=== PATIENT | male | born 1950 | race African-American/Black ===

== ENCOUNTER 2021-07-09 19:35 | Emergency (ER) | payer OTHER ==
[~2021-07-09] VITALS: Ht 180.3 cm; Wt 120.2 kg
[2021-07-09 20:46] LABS: HEMATOCRIT 38.8 % (42.0-52.0); HEMOGLOBIN 13.2 gm/dL (14.0-18.0); MCH 31.7 pg (26.0-34.0); MCV 93.3 fL (80.0-100.0); RBC 4.16 mil/uL (4.50-6.00); RDW 14.2 % (10.5-14.5)
[2021-07-09 20:51] LABS: CREATININE 1.2 mg/dL (0.7-1.3); POTASSIUM 3.5 mmol/L (3.5-5.1)
[2021-07-09 20:57] LABS: ALBUMIN 3.6 g/dL (3.4-5.0); TOTAL BILIRUBIN 0.9 mg/dL (0.2-1.0)
[2021-07-09] MEDS ORDERED: DECADRON6 MG PO (21:43)
[2021-07-09] MEDS ORDERED: PROAIR HFA8.5 GM INH (21:43)
[2021-07-09 22:20] VITALS: BP 172/79
== END 2021-07-09 22:21 | disposition home or self-care (01) ==
LOC: ER 19:35
PROVIDERS: Physician Assistant
DX: U07.1 COVID-19 (principal)

== ENCOUNTER 2021-07-16 15:58 | Inpatient (IN) | payer OTHER ==
[~2021-07-16] VITALS: Ht 180.3 cm; Wt 113.4 kg
[~2021-07-16 15:58] MED LIST: DECADRON6 MG PO; PROAIR HFA8.5 GM INH
[2021-07-16 16:14] VITALS: BP 141/79
[2021-07-16] MEDS ORDERED: METOPROLOL SUC100 MG PO (16:18)
[2021-07-16] MEDS ORDERED: ATORVASTATIN CA20 MG PO (16:18)
[2021-07-16] MEDS ORDERED: HYDROCHLOROTHIA25 M1 PO (16:18)
--- NOTE | 2021-07-16 17:10 | EKG ---
[place] [address] [employer] [facility] [address] ELECTROCARDIOGRAM REPORT Name: TAY VERA Room #: REG ANGIE Kramer#: [id number] Admission: 07/16/21 Attend Phys: Discharge: Date of : 54 Report #: [id number] [facility] ED Test Date: 2021-07-16 Test Time: 17:02:19 Pat Name: TAY VERA Department: Room: Gender: Communicable Disease Specialist: : 1950 Requested By: Susie Griffin Order Number: [id number] MD: Jeanmarie King Measurements Intervals [place] Rate: 101 P: 36 [place]: 166 QRS: 65 QRSD: 107 T: 13 QT: 356 QTc: 462 Interpretive Statements Sinus tachycardia Otherwise no significant abnormality No previous ECG available for comparison Electronically Signed On 07-16-2021 17:10:28 CDT by Jeanmarie King [email or web address] <ELECTRONICALLY SIGNED> By: Jeanmarie King MD, [facility] 07/16/211709 01 1702 Jeanmarie King MD, FACC /EPI
[2021-07-16 18:12] LABS: ABSOLUTE NEUTROPHILS 7.6 thou/uL (1.4-8.2); BASOPHILS 0.5 % (0.0-2.0); EOSINOPHILS 0.3 % (0.0-3.0); HEMATOCRIT 41.6 % (42.0-52.0); HEMOGLOBIN 13.6 gm/dL (14.0-18.0); LYMPHOCYTES 10.8 % (24.0-44.0); MCHC 32.8 g/dL (28.0-37.0); MCV 94.6 fL (80.0-100.0); MONOCYTES 8.5 % (1.0-8.0); PLATELET COUNT 136 thou/uL (150-400); POLYS 79.9 % (36.0-66.0); RDW 13.9 % (10.5-14.5); WBC 9.5 thou/uL (4.0-11.0)
[2021-07-16 18:35] LABS: CALCIUM 8.7 mg/dL (8.5-10.1); CREATININE 0.9 mg/dL (0.7-1.3)
[2021-07-16 18:44] LABS: ALBUMIN 2.7 g/dL (3.4-5.0); TOTAL BILIRUBIN 0.6 mg/dL (0.2-1.0); TOTAL PROTEIN 7.5 g/dL (6.4-8.2)
[2021-07-16 21:41] LABS: URINE BILIRUBIN NEGATIVE (Negative); URINE BLOOD NEGATIVE (Negative); URINE CLARITY CLEAR; URINE COLOR YELLOW; URINE GLUCOSE-RANDOM* NEGATIVE (Negative); URINE KETONES NEGATIVE (Negative); URINE LEUKOCYTES-REFLEX NEGATIVE (Negative); URINE NITRITE-REFLEX NEGATIVE (Negative); URINE PROTEIN (DIPSTICK) NEGATIVE (Negative)
[2021-07-17 04:39] LABS: HEMATOCRIT 39.2 % (42.0-52.0); HEMOGLOBIN 13.2 gm/dL (14.0-18.0); MCH 31.5 pg (26.0-34.0); MCHC 33.6 g/dL (28.0-37.0); MCV 93.7 fL (80.0-100.0); RBC 4.18 mil/uL (4.50-6.00); RDW 13.9 % (10.5-14.5); WBC 9.8 thou/uL (4.0-11.0)
[2021-07-17 05:01] LABS: ALBUMIN 2.5 g/dL (3.4-5.0); CALCIUM 8.9 mg/dL (8.5-10.1); CREATININE 0.9 mg/dL (0.7-1.3); POTASSIUM 4.2 mmol/L (3.5-5.1); TOTAL BILIRUBIN 0.6 mg/dL (0.2-1.0); TOTAL PROTEIN 7.4 g/dL (6.4-8.2)
[2021-07-17 05:06] LABS: CHOLESTEROL 182 mg/dL (<200); HDL CHOLESTEROL 37 mg/dL (>40); LDL CHOLESTEROL 122 mg/dL (<100); TC:HDL 4.9 Ratio (Not establshd); TRIGLYCERIDE 119 mg/dL (<150); VLDL 24 mg/dL (<40)
[2021-07-17 05:09] LABS: SERUM ASSESSMENT Clear
[2021-07-17 18:30] VITALS: BP 141/78
[2021-07-17 18:35] VITALS: BP 141/78
[2021-07-17 18:55] VITALS: BP 150/81
[2021-07-17 20:37] VITALS: BP 150/80
[2021-07-18 00:05] VITALS: BP 144/82
--- NOTE | 2021-07-18 02:59 | NUR ---
PT ADMITTED TO THE UNIT WITH C/O SOA WITH COVID POSITIVE.PT IS A/O X4.PT UP X1 ASSIST AND USES URINAL.PT IS ON 4L OPF O2 VIA NC.PT DENIED PAIN,NAUSEA AND VOMTING.IV ACCESS ON RT FA AND AZITHROMYCIN AND REMDESIVIR GIVEN.WILL CONTINUE TO MONITOR PER POC
--- NOTE | 2021-07-18 05:01 | HC ---
[facility] [place] [address] CONSULTATION Name: TAY VERA Room #: 364-P [facility] IN M.R.#: [id number] Admission: 07/16/21 Attend Phys: Dandre Garsia MD Discharge: Date of : 54 Report #: [id number] THIS REPORT FOR: cc: Savita Hathaway DNP, Mary E. DNP Barry, Joseph W. MD ~ DATE OF SERVICE: 07/17/2021 INFECTIOUS DISEASE CONSULT ATTENDING PHYSICIAN: Dr. Garsia. REASON FOR EVALUATION: COVID-19 infection, complicated by pneumonitis and respiratory failure. HISTORY OF PRESENT ILLNESS: Chart reviewed, patient examined. A 71-year-old gentleman with history of prostate cancer, hypertension, who was actually diagnosed with COVID roughly 8 days ago. He was discharged on corticosteroids inhaler; however, over the course of recent days, had increasing temperatures to 101.3, cough with progressive dyspnea, diminished appetite with loss of taste and smell. Also noted diarrhea. On evaluation, was found to be hypoxic on room air and saturations in the 80s. He is currently requiring supplemental oxygen at 3 liters per nasal cannula. He is generally lucid. Chest x-ray does show mild patchy bilateral infiltrates. Lactic acid 1.0. D-dimer of 0.64. Procalcitonin 0.10. CTA chest showed no evidence of PE, although dense consolidation. Urinalysis unremarkable. Blood cultures collected at time of admission are sterile thus far. ALLERGIES: None known. CURRENT MEDICATIONS: Include atorvastatin, enoxaparin, famotidine, hydrochlorothiazide, metoprolol, dexamethasone, cholecalciferol, ascorbic acid, zinc, ondansetron, remdesivir, azithromycin, ceftriaxone. PAST MEDICAL HISTORY: As noted above, history of hypertension, hyperlipidemia, prostate cancer. SOCIAL HISTORY: He is . No ethanol. FAMILY HISTORY: Noncontributory. REVIEW OF SYSTEMS: Otherwise, unremarkable. PHYSICAL EXAMINATION: GENERAL: He is alert, cooperative, appropriate, mild respiratory distress. He is lucid. [facility] [address] [place] [address] CONSULTATION Name: TAY VERA Room #: 364-P [facility] IN ..#: [id number] Admission: 07/16/21 Attend Phys: Dandre Garsia MD Discharge: Date of : 54 Report #: [id number] VITAL SIGNS: Temperature 97.7, pulse 85, respirations 20, blood pressure 137/74. SKIN: Warm, dry, no rashes. HEENT: Normocephalic. Extraocular muscles intact. Nasal cannula in place, 3 liters. NECK: Supple. LUNGS: Bilateral few scattered coarse breath sounds. HEART: Regular, borderline tachycardic. I do not appreciate a murmur. ABDOMEN: Obese, distended, firm, nontender. EXTREMITIES: No cyanosis. GENITOURINARY AND RECTAL: Deferred. LABORATORY DATA: Blood cultures sterile thus far. Electrolytes: Sodium 136, potassium 4.2, chloride 100, bicarbonate 27, anion gap of 9, BUN and creatinine 11 and 0.9, glucose of 192. AST is 42, ALT of 31, albumin 2.5, total protein 7.4. CBC: White count of 9.8, H and H 13.2 and 39.2, platelets of 132. CTA chest, PE protocol, as noted above. ASSESSMENT AND PLAN: COVID-19 infection, complicated by pneumonitis and respiratory failure, not entirely clear if this is COVID, maybe a complicating secondary bacterial pneumonia given the more consolidative nature of the infiltrate. For this reason, we will continue empiric antibiotics, also directed therapy against COVID. We will add Actemra to the regimen. He remains quite tenuous at this point. Continue to monitor expectantly. <ELECTRONICALLY SIGNED> By: Akshat Webb MD 07/18/21 0501 [id number] Akshat Webb MD /nt
[2021-07-18 06:10] LABS: HEMOGLOBIN 12.7 gm/dL (14.0-18.0); MCH 31.3 pg (26.0-34.0); MCHC 33.5 g/dL (28.0-37.0); MCV 93.5 fL (80.0-100.0); RBC 4.07 mil/uL (4.50-6.00); RDW 13.5 % (10.5-14.5); WBC 9.8 thou/uL (4.0-11.0)
[2021-07-18 06:23] LABS: ALBUMIN 2.4 g/dL (3.4-5.0); ANION GAP 9 mmol/L (7-16); BUN 23 mg/dL (7-18); CALCIUM 8.9 mg/dL (8.5-10.1); CHLORIDE 105 mmol/L (98-107); CO2 27 mmol/L (21-32); CREATININE 0.9 mg/dL (0.7-1.3); DIRECT BILIRUBIN < 0.1 mg/dL (<0.1-0.2); GLUCOSE 135 mg/dL (74-106); PHOSPHORUS 3.3 mg/dL (2.6-4.7); POTASSIUM 4.2 mmol/L (3.5-5.1); SGOT 28 U/L (15-37); SGPT 31 U/L (16-63); SODIUM 141 mmol/L (136-145); TOTAL BILIRUBIN 0.4 mg/dL (0.2-1.0); TOTAL PROTEIN 7.3 g/dL (6.4-8.2)
[2021-07-18 07:56] VITALS: BP 107/60
[2021-07-18 11:50] VITALS: BP 131/88
--- NOTE | 2021-07-18 19:28 | NUR ---
RN ASSUMED PT'S CARE AT 0700-1900PM, PT IS A&OX4, PT IS O2 2-4L/MIN/NC, PT HAS SOB WITH ACTIVITIES, PT IS CONTINING IV ABX AND TREAT COVID MEDICATIONS.
[2021-07-18 19:47] VITALS: BP 120/54
[2021-07-19 04:19] VITALS: BP 133/73
[2021-07-19 05:37] LABS: ABSOLUTE NEUTROPHILS 7.8 thou/uL (1.4-8.2); BASOPHILS 0.3 % (0.0-2.0); HEMATOCRIT 36.8 % (42.0-52.0); HEMOGLOBIN 12.2 gm/dL (14.0-18.0); LYMPHOCYTES 10.6 % (24.0-44.0); MCH 31.2 pg (26.0-34.0); MCHC 33.1 g/dL (28.0-37.0); MCV 94.2 fL (80.0-100.0); MONOCYTES 8.4 % (1.0-8.0); PLATELET COUNT 188 thou/uL (150-400); POLYS 80.7 % (36.0-66.0); RBC 3.91 mil/uL (4.50-6.00); RDW 13.7 % (10.5-14.5); WBC 9.7 thou/uL (4.0-11.0)
[2021-07-19 06:21] LABS: ALBUMIN 2.4 g/dL (3.4-5.0); ANION GAP 10 mmol/L (7-16); BUN 25 mg/dL (7-18); CALCIUM 8.7 mg/dL (8.5-10.1); CHLORIDE 102 mmol/L (98-107); CO2 25 mmol/L (21-32); DIRECT BILIRUBIN < 0.1 mg/dL (<0.1-0.2); GLUCOSE 112 mg/dL (74-106); PHOSPHORUS 3.4 mg/dL (2.5-4.9); POTASSIUM 3.9 mmol/L (3.5-5.1); SGOT 28 U/L (15-37); SGPT 33 U/L (30-65); SODIUM 137 mmol/L (136-145); TOTAL BILIRUBIN 0.3 mg/dL (0.2-1.0); TOTAL PROTEIN 6.8 g/dL (6.4-8.2)
--- NOTE | 2021-07-19 06:36 | NUR ---
PT RESTIG QUIETLY. NO S/S DISTRESS.
[2021-07-19 07:30] VITALS: BP 132/83
--- NOTE | 2021-07-19 10:31 | NUR ---
Pt REFUSING P.T. EVAL HE IS UP AD WINSOME IN HIS ROOM AND STATES THAT HE DOES NOT NEED ANY P.T. HE IS AMBULATING SAFELY AND STEADILY.
[2021-07-19 11:34] VITALS: BP 125/71
[2021-07-19 17:06] VITALS: BP 115/70
--- NOTE | 2021-07-19 19:58 | NUR ---
RN ASSUMED PT'S CARE AT 0700-1900PM, PT IS A&OX4, PT IS CONTINUING IV ABX AND TREAT COVID MEDICATIONS, PT'S VS ARE STABLE AT DAY SHIFT,PT'S SOB AND WAEKNESS HAVE IMPROVED.
[2021-07-19 21:40] VITALS: BP 146/87
--- NOTE | 2021-07-19 23:02 | NUR ---
PT ALERT AND ORIENTED X4. VSS AFEBRILE. NO C/O PAIN. NO S/S DISTRESS ON 2LNC.IV ABX INFUSING ORDERED.
[2021-07-20 03:57] LABS: HEMATOCRIT 37.5 % (42.0-52.0); HEMOGLOBIN 12.6 gm/dL (14.0-18.0); MCH 31.6 pg (26.0-34.0); MCHC 33.7 g/dL (28.0-37.0); MCV 93.7 fL (80.0-100.0); RDW 13.5 % (10.5-14.5)
[2021-07-20 04:16] LABS: ALBUMIN 2.6 g/dL (3.4-5.0); ANION GAP 7 mmol/L (7-16); BUN 26 mg/dL (7-18); CALCIUM 8.9 mg/dL (8.5-10.1); CHLORIDE 106 mmol/L (98-107); CO2 27 mmol/L (21-32); DIRECT BILIRUBIN < 0.1 mg/dL (<0.1-0.2); GLUCOSE 111 mg/dL (74-106); PHOSPHORUS 3.9 mg/dL (2.6-4.7); SGOT 21 U/L (15-37); SGPT 35 U/L (16-63); SODIUM 140 mmol/L (136-145); TOTAL BILIRUBIN 0.3 mg/dL (0.2-1.0); TOTAL PROTEIN 6.8 g/dL (6.4-8.2)
[2021-07-20 05:49] VITALS: BP 131/84
[2021-07-20 08:00] VITALS: BP 115/71
--- NOTE | 2021-07-20 10:51 | NUR ---
INITIAL ASSESSMENT: WESLY reviewed chart and spoke with nursing and attending physician. Pt remains in Enhanced Isolation due to COVID. Pt is afebrile and on 2L of O2. Pt is on IV abx and IV steroids. Pt to complete course of Remdesivir today. Discharge home is anticipated in 1-2 days. WESLY spoke with pt via phone. Introduced role of SW. Pt is alert/orientated x 4. Pt reports he lives at home with his . Prior to admission, pt was independent with ADLs. No use of DME. No hx of services or post-acute placement. Pt's PCP is Dr. Savita Hathaway. SW discussed possible need for home O2. Pt verbalized understanding. Options for DME companies discussed. No preference voiced. WESLY confirmed pt's home address and phone number. SW faxed referral to [facility] [place] for review. Notified [facility] [place] liaison. Pt will need rest/exercise oximetry ordered prior to discharge. Plan is for pt to discharge home when medically stable. WESLY is following to assist as needed with discharge planning.
[2021-07-20 16:35] VITALS: BP 138/80
[2021-07-20 18:52] VITALS: BP 108/60
--- NOTE | 2021-07-20 19:35 | NUR ---
RN ASSUMED PT'S CARE AT 0700-19OOPM, PT IS A&OX4, PT'S O2 HAS REDUCED TO 1L/MIN/NC, PT'S SOB AND COUGHING HAVE IMPROVED, PT'S IV ABX HAS CHANGED TO PT , PT MAR DC TO HOME TOMORROW.
--- NOTE | 2021-07-21 00:56 | NUR ---
PT RESTING IN BED. ON 1L OF O2. UP AD WINSOME. DENIES CHEST PAIN SOB. IV ITACT AND LAST DOSE OF REMDESIVIR GIVEN. CALL LIGHT AT REACH AND FURTHER SIGNS OF DISCOMFORT WILL CONT TO MONITOR.
[2021-07-21 04:01] VITALS: BP 89/54
[2021-07-21 04:10] VITALS: BP 98/62
[2021-07-21 05:45] LABS: ALBUMIN 2.8 g/dL (3.4-5.0); ANION GAP 11 mmol/L (7-16); BUN 22 mg/dL (7-18); CALCIUM 9.1 mg/dL (8.5-10.1); CHLORIDE 100 mmol/L (98-107); CO2 22 mmol/L (21-32); CREATININE 0.9 mg/dL (0.7-1.3); DIRECT BILIRUBIN < 0.1 mg/dL (<0.1-0.2); GLUCOSE 104 mg/dL (74-106); PHOSPHORUS 4.3 mg/dL (2.5-4.9); POTASSIUM 4.2 mmol/L (3.5-5.1); SGOT 26 U/L (15-37); SGPT 30 U/L (30-65); SODIUM 133 mmol/L (136-145); TOTAL BILIRUBIN 0.4 mg/dL (0.2-1.0); TOTAL PROTEIN 7.4 g/dL (6.4-8.2)
[2021-07-21 08:02] VITALS: BP 117/78
--- NOTE | 2021-07-21 14:58 | NUR ---
SW reviewed chart and spoke with nursing and attending physician. Pt remains in Enhanced Isolation due to COVID. Pt is afebrile and on 1L of O2. Pt is on IV steroids. Rest/exercise oximetry completed today. Pt does not qualify for home O2. Worsening chest xray today. Discharge home is anticipated for tomorrow. WESLY is following to assist as needed with discharge planning.
[2021-07-21 15:38] VITALS: BP 121/72
[2021-07-21 19:13] VITALS: BP 106/50
--- NOTE | 2021-07-21 19:38 | NUR ---
RN ASSUMED PT'S CARE AT 0700-1900PM, PT IS A&OX4, PT IS OFF O2 TODAY, PT'S SOB HAS IMPROVED, PT'S VS ARE STABLE, RN HAS REPORTED ABNORMAL CHEST X-RAY RESULTS TO ID AND [facility] , NEW ORDER RECEIVED,
--- NOTE | 2021-07-22 04:43 | NUR ---
PT MAKING PROGRESS TOWARDS GOALS. ON ROOM, DENIES FEELING SOA WHEN UP TO TOILET. O2 AT 1L PER NC FOR PT TO USE PRN ANY SOA OVERNIGHT. LUNGS DIMINISHED THROUGHOUT.
[2021-07-22 05:03] VITALS: BP 108/67
[2021-07-22 05:59] LABS: HEMATOCRIT 40.3 % (42.0-52.0); MCH 32.2 pg (26.0-34.0); MCHC 34.7 g/dL (28.0-37.0); MCV 92.8 fL (80.0-100.0); RBC 4.35 mil/uL (4.50-6.00); RDW 13.7 % (10.5-14.5); WBC 9.8 thou/uL (4.0-11.0)
[2021-07-22 06:16] LABS: CALCIUM 8.9 mg/dL (8.5-10.1); MAGNESIUM 2.1 mg/dL (1.8-2.4); POTASSIUM 3.8 mmol/L (3.5-5.1)
[2021-07-22 08:03] VITALS: BP 118/78
[2021-07-22] MEDS ORDERED: MUCINEX600 MG PO (13:07)
[2021-07-22] MEDS ORDERED: ZINC SULFATE50 MG PO (13:07)
[2021-07-22] MEDS ORDERED: PREDNISONE 10 M10 M1 PO (13:07)
[2021-07-22] MEDS ORDERED: VITCB500GO PO (13:07)
[2021-07-22] MEDS ORDERED: VITAMIN D325 MC2 PO (13:07)
[2021-07-22] MEDS ORDERED: CEFDINIR300 MG PO (13:07)
[2021-07-22 14:07] VITALS: BP 118/78
--- NOTE | 2021-07-22 14:57 | NUR ---
DISCHARGE NOTE: SW reviewed chart and spoke with nursing and attending physician. Pt remains in Enhanced Isolation due to COVID. Pt is medically stable for discharge home today. Pt does not need home O2. Discharge ppwk completed. Pt's family to provide transportation home. No SW needs identified at this time, but is available to assist should needs arise.
--- NOTE | 2021-07-22 15:55 | NUR ---
assumed care of pt at 0700. pt aox4 no acute distress. breathing comfortably on room air. does not qualify for home O2 with RT exercise test. stable for discharge. no events on telemetry. d/c instructions provided for patient and .
== END 2021-07-22 15:57 | disposition home or self-care (01) | DRG 177 ==
LOC: ER 15:58 → 3W 22:01 → EROBS 22:01 → 3W 07-17 18:58
PROVIDERS: Internal Medicine; Nurse Practitioner Family; ADMIT Hospitalist; ATTEND Hospitalist
PROC: XW033H5 Introduction of Tocilizumab into Peripheral Vein, Percutaneous Approach, New Technology Group 5 (ICD-10-PCS; principal; 2021-07-17)
PROC: XW033E5 Introduction of Remdesivir Anti-infective into Peripheral Vein, Percutaneous Approach, New Technology Group 5 (ICD-10-PCS; principal; 2021-07-17)
DX: U07.1 COVID-19 (principal); J96.01 Acute respiratory failure with hypoxia; J12.82 Pneumonia due to coronavirus disease 2019; J15.9 Unspecified bacterial pneumonia; I10 Essential (primary) hypertension; E66.9 Obesity, unspecified; R73.9 Hyperglycemia, unspecified; E78.5 Hyperlipidemia, unspecified; Z85.46 Personal history of malignant neoplasm of prostate; Z79.899 Other long term (current) drug therapy; Z68.34 Body mass index [BMI] 34.0-34.9, adult
CPT/HCPCS: 10879